=== PATIENT | male | born 1950 | race Caucasian/White ===

== ENCOUNTER 2021-01-03 21:45 | Inpatient (IN) | payer OTHER ==
[~2021-01-03] VITALS: Ht 193 cm; Wt 117.0 kg
--- NOTE | 2021-01-03 21:57 | NUR ---
PASTRY CHEF: PT OXYGEN LEVEL 87% RA. PT PLACED ON OXYGEN 2L VIA NC. OXYGEN 93%
--- NOTE | 2021-01-03 22:20 | NUR ---
PT C/O SOB, HEADACHE, FEVER/CHILLS, NAUSEA, BODYACHES. DENIES VOMITTING, AND CP. EKG AT BEDSIDE. ATTCAHED TO CARD/SP02/BP MONITORS. VSAundrea. ANDREAS. BED IN LOW, RAILS ENGAGED, CALL LIGHT ON LAP.
[2021-01-03] MEDS ORDERED: SODIUM CHLORIDE 0.9% 1,000ML IVBOLUS ONE (22:30)
--- NOTE | 2021-01-03 22:42 | NUR ---
BLOOD CULTURES PUKKED. 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 VSS. JOHNS AT THIS MOMENT. AT BEDSIDE. NACHO
--- NOTE | 2021-01-03 22:44 | NUR ---
PT STATES HE DOES NOT TAKE ANY MEDICATIONS
--- NOTE | 2021-01-03 22:51 | NUR ---
RESP ISO IN PLACE
[2021-01-03 23:09] LABS: ALBUMIN 2.7 g/dL (3.4-5.0); ANION GAP 10 mmol/L (5-15); CALCIUM 8.8 mg/dL (8.5-10.1); CHLORIDE 98 mmol/L (98-107); CREATININE 0.75 mg/dL (0.7-1.3)
[2021-01-03 23:12] LABS: TROPONIN I < 0.015 ng/mL (0.000-0.045)
[2021-01-03 23:30] LABS: BASOPHILS % (AUTO) 0 % (0-1); EOSINOPHILS % (AUTO) 1 % (1-7); LYMPHOCYTES % (AUTO) 8 % (22-44); MEAN CORPUSCULAR HEMOGLOBIN 36.1 pg (27.5-34.5); MEAN CORPUSCULAR HGB CONC 35.6 g/dL (33.2-36.2); MEAN PLATELET VOLUME 8.6 fL (7.4-10.4); MONOCYTES % (AUTO) 10 % (2-9); NEUTROPHILS % (AUTO) 81 % (42-75); PLATELET COUNT 178 x10^3/uL (130-400); RED BLOOD COUNT 4.19 x10^6/uL (4.38-5.82); RED CELL DISTRIBUTION WIDTH 12.5 % (9.4-14.8)
[2021-01-03] MEDS ORDERED: POTASSIUM CHLORIDE 20 MEQ PACKET PO ONE (23:45)
[2021-01-04] MEDS ORDERED: POTASSIUM CHLORIDE 20 MEQ PACKET ONE (00:14)
--- NOTE | 2021-01-04 00:26 | NUR ---
GAVE REPORT TO CHINO RAO
[2021-01-04 00:58] VITALS: BP 162/87
[2021-01-04] MEDS ORDERED: PHARMACY MAY ADJ FOR RENAL FX MC PRN (03:00)
[2021-01-04] MEDS ORDERED: ONDANSETRON 2MG/ML, 2ML IVPush PRN (03:00)
[2021-01-04] MEDS ORDERED: ACETAMINOPHEN 325 MG TABLET PO PRN (03:00)
[2021-01-04] MEDS ORDERED: HYDROcodone/APAP 5/325 TABLET PO PRN (03:00)
[2021-01-04] MEDS ORDERED: PROCHLORPERAZINE 10MG TABLET PO PRN (03:00)
[2021-01-04] MEDS: methylPREDNISolone SOD SUCC 40 MG/ML IVPush SCH ×4 (03:05→21:21)
[2021-01-04] MEDS: CEFTRIAXONE 1,000 MG in DEXTROSE 5% 50 ML IVPB SCH (03:06)
[2021-01-04] MEDS: ENOXAPARIN 120MG/0.8ML SQ SCH ×2 (03:06→15:20)
[2021-01-04 05:31] LABS: BASOPHILS % (AUTO) 0 % (0-1); EOSINOPHILS % (AUTO) 1 % (1-7); LYMPHOCYTES % (AUTO) 6 % (22-44); MEAN CORPUSCULAR HEMOGLOBIN 35.9 pg (27.5-34.5); MEAN CORPUSCULAR HGB CONC 35.4 g/dL (33.2-36.2); MEAN PLATELET VOLUME 7.3 fL (7.4-10.4); MONOCYTES % (AUTO) 8 % (2-9); NEUTROPHILS % (AUTO) 86 % (42-75); PLATELET COUNT 202 x10^3/uL (130-400); RED BLOOD COUNT 4.03 x10^6/uL (4.38-5.82); RED CELL DISTRIBUTION WIDTH 12.2 % (9.4-14.8)
[2021-01-04 05:36] LABS: ALBUMIN 2.5 g/dL (3.4-5.0); ANION GAP 6 mmol/L (5-15); CALCIUM 8.8 mg/dL (8.5-10.1); CHLORIDE 102 mmol/L (98-107)
[2021-01-04 05:41] LABS: D-DIMER 0.57 ug/mlFEU (0.00-0.52); INTERNATIONAL NORMALIZED RATIO 1.12 (0.93-1.1); PARTIAL THROMBOPLASTIN TIME 32 Seconds (25-31); PROTHROMBIN TIME 11.9 Seconds (9.6-11.5)
[2021-01-04 05:51] LABS: ALANINE AMINOTRANSFERASE 56 U/L (12-78); ALKALINE PHOSPHATASE 40 U/L (45-117); CREATINE KINASE, TOTAL 191 U/L (39-308); CREATININE 0.71 mg/dL (0.7-1.3); TOTAL PROTEIN 6.9 g/dL (6.4-8.2)
[2021-01-04 06:14] LABS: FIBRINOGEN > 713 mg/dL (200-340)
[2021-01-04 07:27] VITALS: BP 126/65
[2021-01-04] MEDS: ASCORBIC ACID 500 MG TABLET PO SCH ×2 (10:17→21:21)
[2021-01-04] MEDS: ZINC SULFATE 220 MG CAPSULE PO SCH (10:17)
[2021-01-04] MEDS: FLUTICASONE/VILANTEROL 100-25MCG/INH INH SCH (10:17)
[2021-01-04 12:26] VITALS: BP 130/74
[2021-01-04] MEDS: DEXTROMETHORPHAN 30 MG/5 ML ORAL SOL PO PRN (15:19)
[2021-01-04 19:18] VITALS: BP 144/89
[2021-01-04] MEDS: POTASSIUM CHLORIDE 20 MEQ TAB.ER.PRT PO SCH (21:21)
[2021-01-05 00:29] VITALS: BP 139/83
[2021-01-05] MEDS ORDERED: MELATONIN 5 MG TABLET PO PRN (00:30)
[2021-01-05] MEDS: ENOXAPARIN 120MG/0.8ML SQ SCH ×2 (02:57→14:33)
[2021-01-05] MEDS: methylPREDNISolone SOD SUCC 40 MG/ML IVPush SCH ×3 (02:57→14:33)
[2021-01-05] MEDS: CEFTRIAXONE 1,000 MG in DEXTROSE 5% 50 ML IVPB SCH (02:58)
[2021-01-05 07:00] VITALS: BP 139/84
[2021-01-05] MEDS: ASCORBIC ACID 500 MG TABLET PO SCH (08:12)
[2021-01-05] MEDS: FLUTICASONE/VILANTEROL 100-25MCG/INH INH SCH (08:12)
[2021-01-05] MEDS: POTASSIUM CHLORIDE 20 MEQ TAB.ER.PRT PO SCH (08:12)
[2021-01-05] MEDS: ZINC SULFATE 220 MG CAPSULE PO SCH (08:12)
[2021-01-05] MEDS ORDERED: CHOLECALCIFEROL 5,000u TAB PO SCH (09:30)
[2021-01-05 10:20] LABS: ALBUMIN 2.8 g/dL (3.4-5.0); ANION GAP 7 mmol/L (5-15); CALCIUM 9.6 mg/dL (8.5-10.1); CHLORIDE 104 mmol/L (98-107)
[2021-01-05 10:22] LABS: BASOPHILS % (AUTO) 0 % (0-1); EOSINOPHILS % (AUTO) 0 % (1-7); LYMPHOCYTES % (AUTO) 3 % (22-44); MEAN CORPUSCULAR HEMOGLOBIN 36.3 pg (27.5-34.5); MEAN CORPUSCULAR HGB CONC 35.8 g/dL (33.2-36.2); MEAN PLATELET VOLUME 8.4 fL (7.4-10.4); MONOCYTES % (AUTO) 3 % (2-9); NEUTROPHILS % (AUTO) 94 % (42-75); PLATELET COUNT 295 x10^3/uL (130-400); RED BLOOD COUNT 4.28 x10^6/uL (4.38-5.82); RED CELL DISTRIBUTION WIDTH 12.6 % (9.4-14.8)
[2021-01-05 10:31] LABS: ALANINE AMINOTRANSFERASE 82 U/L (12-78); ALKALINE PHOSPHATASE 46 U/L (45-117); BILIRUBIN,TOTAL 0.6 mg/dL (0.2-1.0); CREATINE KINASE, TOTAL 110 U/L (39-308); CREATININE 0.77 mg/dL (0.7-1.3); TOTAL PROTEIN 7.6 g/dL (6.4-8.2)
[2021-01-05 11:26] LABS: HCT (SEDRATE) 43.3 % (39.2-51.8)
[2021-01-05] MEDS: DEXTROMETHORPHAN 30 MG/5 ML ORAL SOL PO PRN (12:09)
[2021-01-05] MEDS ORDERED: CHOL500045 PO (15:25)
[2021-01-05] MEDS ORDERED: MELA5TAB14 PO (15:25)
[2021-01-05] MEDS ORDERED: PRED20TA PO (15:25)
[2021-01-05] MEDS ORDERED: ASCO500T9 PO (15:25)
[2021-01-05] MEDS ORDERED: FLUT1AER INH (15:25)
[2021-01-05] MEDS ORDERED: ZINC220C8 PO (15:25)
== END 2021-01-05 17:00 | disposition home or self-care (01) | DRG 177 ==
LOC: ED 22:00 → EDIP 23:34 → 3N 01-04 00:54
PROVIDERS: ADMIT Internal Medicine; ATTEND Family Medicine
DX: U07.1 COVID-19 (principal); J12.82 Pneumonia due to coronavirus disease 2019; J96.01 Acute respiratory failure with hypoxia; E87.6 Hypokalemia; E86.0 Dehydration
CPT/HCPCS: 36415; 71045; 71250; 80048; 80053; 82040; 82550; 82728; 83605; 83615; 83735; 84484; 85025; 85379; 85384; 85610; 85651; 85730; 86140; 87040; 93005; 96374; 96375; 99285; G0378; J0696; J1650; J2920; J7030